=== PATIENT | male | born 1985 | race American Indian/Alaskan Native ===

== ENCOUNTER 2019-07-19 17:49 | Emergency (ER) | payer SELFPAY ==
[2019-07-19] MEDS ORDERED: Sodium Chloride 0.9% 1,000 ML IV ONE (18:03)
[2019-07-19 18:37] LABS: BLOOD UREA NITROGEN,BUN 14 mg/dL (7.0-18.0); CARBON DIOXIDE,CO2 19.2 mmol/L (21.0-32.0); CHLORIDE,CL 101 mmol/L (98-107); GLUCOSE RANDOM 113 mg/dL (74-106); POTASSIUM,K 4.2 mmol/L (3.5-5.1); SODIUM,NA 138 mmol/L (136-148)
--- NOTE | 2019-07-19 18:46 | CR ---
Chest: 2 views of the chest were obtained. Comparison: No prior chest imaging is available. Slight atelectasis is noted within the lingula. Lungs otherwise are clear. Heart size and mediastinum are normal. Bony structures appear within normal limits for the patient's age. Impression: 1. Minimal lingular atelectasis. 2. Nothing acute is seen. Diagnostic code #2 This report was dictated in [place] Standard Time
--- NOTE | 2019-07-19 18:48 | EDM.PDOC ---
ED HPI GENERAL MEDICAL PROBLEM - General Chief Complaint: Respiratory Problem Stated Complaint: THROAT SORE CHEST HURT Time Seen by Provider: 07/19/19 17:59 Source of Information: Reports: Patient History Limitations: Reports: No Limitations - History of Present Illness INITIAL COMMENTS - FREE TEXT/NARRATIVE: HISTORY AND PHYSICAL: History of present illness: Patient is a 34-year-old male who presents to the emergency room today with complaints of cough, sore throat and fever x2 days. Has not used any over-the- counter products. Patient denies any headache, change in vision, syncope or near syncope. Denies any chest pain, back pain, shortness of breath. Denies any GI or symptoms. Patient has been eating and drinking appropriately. Review of systems: As per history of present illness and below otherwise all systems reviewed and negative. Past medical history: As per history of present illness and as reviewed below otherwise noncontributory. Surgical history: As per history of present illness and as reviewed below otherwise noncontributory. Social history: See social history for further information Family history: As per history of present illness and as reviewed below otherwise noncontributory. Physical exam: General: Well-developed and well-nourished 34-year-old male. Alert and oriented. Nontoxic-appearing and in no acute distress. HEENT: Atraumatic, normocephalic, pupils equal and reactive bilaterally, negative for conjunctival pallor or scleral icterus, mucous membranes moist, TMs normal bilaterally, throat clear, neck supple, nontender, trachea midline. No drooling or trismus noted. No meningeal signs. No hot potato voice noted. Lungs: Loose rhonchi bilateral, breath sounds equal bilaterally, able to clear with cough. Chest nontender. Loose harsh cough noted.No work of breathing. Heart: S1S2, regular rate and rhythm without overt murmur Abdomen: Soft, nondistended, nontender. Skin: Intact, warm, dry. No lesions or rashes noted. Extremities: Atraumatic, moves all extremities per self without difficulty or deficits, negative for cords or calf pain. Neurovascular unremarkable. Neuro: Awake, alert, oriented. Cranial nerves II through XII unremarkable. Cerebellum unremarkable. Motor and sensory unremarkable throughout. Exam nonfocal. Notes: Patient is tachycardic and does sound to have some rhonchi bilaterally. We will do basic lab work along with IV fluids and chest x-ray. Patient is agreeable. Patient's vital signs have improved. Patient is positive for influenza B. His white count is slightly elevated and lung sounds are suspicious of a lower lobe pneumonia. Discussed with patient Tamiflu, he declines at this time. We will treat for an atypical pneumonia. We discussed signs and symptoms that would prompt him to return to the emergency room. Supportive care measures were reviewed and discussed. Voices understanding and is agreeable to plan of care. Denies any further questions or concerns at this time. Diagnostics: Influenza, CBC, BMP, CXR Therapeutics: IV fluids, Rocephin Prescription: Zpak, Guafenesin with codeine Impression: Influenza B Upper respiratory infection Plan: 1. Standard contact precautions (covering mouth while coughing, avoid sharing drinking cups and eating utensils). Please make sure you're doing good handwashing as this is contagious. 2. Please stay out of work over the next 48 hours while initiating medications. 3. Supportive care measures such as Tylenol and/or ibuprofen for pain and fever management.Encourage small frequent sips of fluids to prevent dehydration. 4. 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 Return to the ED as needed and as discussed. Definitive disposition and diagnosis as appropriate pending reevaluation and review of above. throat Pain Score (Numeric/FACES): 9 - Related Data Allergies Allergy/AdvReac Type Severity Reaction Status Date / Time No Known Allergies Allergy Verified 07/19/19 18:06 Home Meds: Home Meds Azithromycin [Zithromax] 1 dose PO DAILY 5 Days #6 tab 07/19/19 [Rx] Codeine Phosphate/Guaifenesin [Guaifen-Codeine 200-20 mg/10Ml] 10 ml PO Q6HR PRN #120 ml 07/19/19 [Rx] Past Medical History - Infectious Disease History Infectious Disease History: Reports: Chicken Pox - Past Surgical History Other Musculoskeletal Surgeries/Procedures:: hand surgery Social & Family History - Family History Family Medical History: Noncontributory - Tobacco Use Smoking Status *Q: Never Smoker - Recreational Drug Use Recreational Drug Use: No ED ROS GENERAL - Review of Systems Review Of Systems: Comprehensive ROS is negative, except as noted in HPI. ED EXAM, GENERAL - Physical Exam Exam: See Below (See dictation) Course - Vital Signs Last Recorded V/S: Last Vital Signs Temp 96.8 F 07/19/19 18:03 Pulse 102 H 07/19/19 20:07 Resp 16 07/19/19 20:07 BP 136/71 07/19/19 20:07 Pulse Ox 95 07/19/19 20:07 - Orders/Labs/Meds Orders: Active Orders 24 hr Category Date Time Status CULTURE STREP A CONFIRMATION [] Stat Lab 07/19/19 18:14 Results STREP SCRN A RAPID W CULT CONF [] Stat Lab 07/19/19 18:14 Results Labs: Laboratory Tests 07/19/19 07/19/19 Range/Units 18:13 18:13 WBC 12.18 H (4.0-11.0) K/uL RBC 5.61 (4.50-5.90) M/uL Hgb 17.2 H (13.0-17.0) g/dL Hct 47.5 (38.0-50.0) % MCV 84.7 (80.0-98.0) fL MCH 30.7 (27.0-32.0) pg MCHC 36.2 (31.0-37.0) g/dL RDW Std Deviation 39.5 (28.0-62.0) fl RDW Coeff of Senthil 13 (11.0-15.0) % Plt Count 270 (150-400) K/uL MPV 9.70 (7.40-12.00) fL Neut % (Auto) 75.0 (48.0-80.0) % Lymph % (Auto) 14.4 L (16.0-40.0) % Lamar % (Auto) 10.5 (0.0-15.0) % Eos % (Auto) 0.0 (0.0-7.0) % Baso % (Auto) 0.1 (0.0-1.5) % Neut # (Auto) 9.1 H (1.4-5.7) K/uL Lymph # (Auto) 1.8 (0.6-2.4) K/uL Lamar # (Auto) 1.3 H (0.0-0.8) K/uL Eos # (Auto) 0.0 (0.0-0.7) K/uL Baso # (Auto) 0.0 (0.0-0.1) K/uL Nucleated RBC % 0.0 /100WBC Nucleated RBCs # 0 K/uL Sodium 138 (136-148) mmol/L Potassium 4.2 (3.5-5.1) mmol/L Chloride 101 (98-107) mmol/L Carbon Dioxide 19.2 L (21.0-32.0) mmol/L BUN 14 (7.0-18.0) mg/dL Creatinine 1.1 (0.8-1.3) mg/dL Est Cr Clr Drug Dosing 108.95 mL/min Estimated GFR (MDRD) > 60.0 ml/min Glucose 113 H (74-106) mg/dL Calcium 9.1 (8.5-10.1) mg/dL Meds: Medications Discontinued Medications Generic Name Dose Route Start Last Admin Trade Name Freq PRN Reason Stop Dose Admin Sodium Chloride 1,000 mls @ 999 mls/hr 07/19/19 18:03 07/19/19 18:13 Normal Saline IV 07/19/19 19:03 999 mls/hr STAT ONE Administration Ceftriaxone Sodium/Dextrose 1 50 mls @ 100 mls/hr 07/19/19 19:00 07/19/19 19: 16 gm/ Premix IV 07/19/19 19:29 100 mls/hr ONETIME ONE Administration Departure - Departure Time of Disposition: 19:07 Disposition: Home, Self-Care 01 Clinical Impression: Influenza B Upper respiratory infection Qualifiers: URI type: unspecified URI Qualified Code(s): J06.9 - Acute upper respiratory infection, unspecified - Discharge Information Prescriptions: Codeine Phosphate/Guaifenesin [Guaifen-Codeine 200-20 mg/10Ml] 10 ml PO Q6HR PRN #120 ml PRN Reason: Cough Azithromycin [Zithromax] 1 dose PO DAILY 5 Days #6 tab Instructions: Influenza, Adult, [id number] Referrals: PCP,Not In Area [Primary Care Provider] - Forms: ED Department Discharge Additional Instructions: The following information is given to patients seen in the emergency department who are being discharged to home. This information is to outline your options for follow-up care. We provide all patients seen in our emergency department with a follow-up referral. The need for follow-up, as well as the timing and circumstances, are variable depending upon the specifics of your emergency department visit. If you don't have a primary care physician on staff, we will provide you with a referral. We always advise you to contact your personal physician following an emergency department visit to inform them of the circumstance of the visit and for follow-up with them and/or the need for any referrals to a consulting specialist. The emergency department will also refer you to a specialist when appropriate. This referral assures that you have the opportunity for follow-up care with a specialist. All of these measure are taken in an effort to provide you with optimal care, which includes your follow-up. Under all circumstances we always encourage you to contact your private physician who remains a resource for coordinating your care. When calling for follow-up care, please make the office aware that this follow-up is from your recent emergency room visit. If for any reason you are refused follow-up, please contact the [facility] Emergency Department at and asked to speak to the emergency department charge nurse. [facility] [address] [place] [id number] [place] [address] 1. Standard contact precautions (covering mouth while coughing, avoid sharing drinking cups and eating utensils). Please make sure you're doing good handwashing as this is contagious. 2. Please stay out of work over the next 48 hours while initiating medications. 3. Supportive care measures such as Tylenol and/or ibuprofen for pain and fever management.Encourage small frequent sips of fluids to prevent dehydration. 4. 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 Return to the ED as needed and as discussed. Sepsis Event Note - Evaluation Sepsis Screening Result: No Definite Risk - Focused Exam Vital Signs: Vital Signs Temp Pulse Resp BP Pulse Ox 07/19/19 20:07 102 H 16 136/71 95 07/19/19 18:56 112 H 18 145/88 H 95 01/18/20 18:03 96.8 F 122 H 20 152/96 H 94 L Date Exam was Performed: 07/19/19 Time Exam was Performed: 21:23 - My Orders Last 24 Hours: My Active Orders 07/19/19 18:14 CULTURE STREP A CONFIRMATION [RM] Stat STREP SCRN A RAPID W CULT CONF [RM] Stat - Assessment/Plan Last 24 Hours: My Active Orders 07/19/19 18:14 CULTURE STREP A CONFIRMATION [RM] Stat STREP SCRN A RAPID W CULT CONF [] Stat
[2019-07-19] MEDS ORDERED: cefTRIAXone 1 GM in Premix Bag 1 BAG IV ONE (19:00)
== END 2019-07-19 20:05 | disposition home or self-care (01) ==
LOC: MW.ED 17:49
DX: J10.1 Influenza due to other identified influenza virus with other respiratory manifestations (principal)
CPT/HCPCS: 71046; 80048; 85025; 87081; 87804; 87880; 96361; 96365; 99283; J0696; J7030